=== PATIENT | female | born 1950 | race Caucasian/White ===

== ENCOUNTER 2017-06-20 12:00 | Outpatient (CLI) | payer MEDICARE, OTHER ==
--- NOTE | 2017-06-23 15:12 | Nuclear Medicine Report ---
EXAM: BONE SCAN EXAM DATE: 06/20/2017 03:27 PM. CLINICAL HISTORY: History of breast carcinoma. Left hip pain. COMPARISON: No comparison images available. Providers office contacted at the time of reporting. TECHNIQUE: Following the intravenous administration of 32 mCi of technetium 99m MDP and an appropriat e delay, a whole-body scan was performed in anterior and posterior projections. Site-specific spot vi ews of the region of interest were obtained in various projections. FINDINGS: Exam Quality: Normal overall osseous radiotracer uptake. Physiological tracer uptake in bilateral col lecting systems. Skull: No focal uptake. Thorax: No focal lesions in ribs or sternum. Pelvis: There is markedly increased tracer uptake in the region of the weightbearing surface of the l eft acetabulum and femoral hip. There is moderately increased tracer uptake in the remainder of the l eft femoral head. The findings carry a differential diagnosis including metastatic disease, fracture, avascular necrosis with subchondral collapse and severe degenerative change. Correlation with x-ray is recommended. No other foci of abnormal tracer uptake in the bony pelvis. Spine: There is moderately increased tracer uptake in the left C3-C4 and C4-C5 and right C5-C6 and C6 -C7 facet joints. Tracer uptake in the remainder of the spine appears normal. IMPRESSION: 1. Markedly increased tracer uptake in the weightbearing surfaces of the left hip, which may indicate metastasis, fracture, avascular necrosis with subchondral collapse or severe arthritis. Correlation with x-rays recommended. 2. Findings consistent with degenerative change of the cervical spine. [facility] Referring Provider Line: [phone] SITE ID: [id number]
== END 2017-06-20 12:01 | disposition home or self-care (01) ==
LOC: DI 12:00
PROVIDERS: ATTEND Internal Medicine Hematology & Oncology
DX: M25.552 Pain in left hip (principal); Z85.3 Personal history of malignant neoplasm of breast
CPT/HCPCS: 78306; A9503

== ENCOUNTER 2017-11-23 10:40 | Outpatient (CLI) | payer MEDICARE, OTHER ==
--- NOTE | 2017-11-24 12:29 | DEXA Report ---
DEXA: 11/23/2017 CLINICAL INDICATION: Postmenopausal. TECHNIQUE: Dual energy x-ray absorptiometry (DXA) was performed on a [employer] system. Regions measured are the AP spine, femoral neck, and, if needed, forearm. COMPARISON: 09/15/2016. In accordance with the International Society for Clinical Densitometry (ISCD) guidelines, data from previous exams may be reanalyzed using current recommendations and techniques. This is done to allow a more accurate basis for comparison with the current study. FINDINGS The data for the lumbar spine is as follows: REGION BMD (g/cm/cm) T-SCORE Z-SCORE L1 0.975 -1.3 0.5 L2 1.050 -1.3 0.5 L3 1.175 -0.2 1.6 L4 1.246 0.4 2.2 TOTAL 1.125 -0.5 1.3 NOTE: All evaluable vertebrae are used for classification. The data for the hip is as follows: REGION BMD (g/cm/cm) T-SCORE Z-SCORE Neck 0.997 -0.3 1.4 TOTAL 0.902 -0.8 0.6 NOTE: The femoral neck or total proximal femur, whichever is lowest, is used for classification. DEXA RESULTS SUMMARY: Spine SCAN DATE AGE BMD T-SCORE BMD CHANGE VS BASELINE BMD CHANGE VS PREVIOUS 11[age]23/2017 [age] 1.125 -- 0.008 0.7 09/15/2016 66.6 1[age]117 -- -- -- * Denotes significant change at the 95% confidence level. Denotes dissimilar scan types or analysis methods. DEXA RESULTS SUMMARY: Total hip SCAN DATE AGE BMD T-SCORE BMD CHANGE VS BASELINE BMD CHANGE VS PREVIOUS 11[age]23/2017 67.7 0.902 -- -0.005 -0.6 09[age]15/2016 66.6 0[age]907 -- -- -- * Denotes significant change at the 95% confidence level. Denotes dissimilar scan types or analysis methods. IMPRESSION 1. THE WHO CLASSIFICATION BASED ON THE INTERNATIONAL REFERENCE STANDARD IS NORMAL. THE FRACTURE RISK IS NOT INCREASED. 2. THERE HAS BEEN NO STATISTICALLY SIGNIFICANT INTERVAL CHANGE FROM 09/15/2016. RECOMMENDATION: Patients with diagnosis of osteoporosis or osteopenia should have regular bone mineral density assessment. For those eligible for Medicare, routine testing is allowed once every 2 years. Testing frequency can be increased for patients who have rapidly progressing disease or for those who are receiving medical therapy to restore bone mass. COMMENT: World Health Organization (WHO) definitions for osteoporosis and osteopenia: NORMAL BMD: T-score at 1.0 or higher, fracture risk is low. OSTEOPENIA BMD: T-score between 1.0 and -2.5, fracture risk is increased. OSTEOPOROSIS BMD: T-score at 2.5 or lower, fracture risk high. National Osteoporosis Foundation recommends: 1. Obtain adequate dietary calcium (at least 1200 mg per day) and vitamin D (400 -800 international units per day). 2. Participate, as appropriate, in regular weightbearing and muscle- strengthening exercise. 3. Avoid tobacco use and reduce alcohol and caffeine intake. 4. For more detailed information see the website at www.NOF.org. TD: 11/23/2017 18:13 TIRSO
== END 2017-11-23 10:41 | disposition home or self-care (01) ==
LOC: DI 10:40
DX: M81.0 Age-related osteoporosis without current pathological fracture (principal); Z78.0 Asymptomatic menopausal state
CPT/HCPCS: 77080

== ENCOUNTER 2018-12-10 10:39 | Outpatient (CLI) | payer MEDICARE, OTHER ==
--- NOTE | 2018-12-10 16:41 | Mammography Report ---
Reason: BREAST CANCER Procedure Date: 12/10/2018 Accession Number: [id number] / [id number] Procedure: [facility] - Diagnostic Dig Bilat CPT Code: FULL RESULT: EXAM: Diagnostic Dig Bilat DATE: 12/10/2018 11:34 AM CLINICAL HISTORY: Personal history of right breast cancer status post lumpectomy and chemoradiation infiltrate 2016. Diagnostic mammogram. TECHNIQUE: Bilateral CC and MLO views were obtained. Right ML and spot magnified right ML and CC views were obtained. COMPARISON: 09/22/2017 through 08/26/2015. FINDINGS: The breasts demonstrate extremely dense parenchyma bilaterally, limiting the sensitivity of mammography. Expected interval evolution of postsurgical and posttreatment changes in the right breast is observed. No suspicious masses, architectural distortion or calcifications are seen in either breast. IMPRESSION: Probable benign findings RECOMMENDATION: Recommend routine annual diagnostic mammography unless otherwise clinically indicated. BIRADS CATEGORY 3 STANDARD QUALIFYING STATEMENTS: 1. This examination was not reviewed with the aid of Computer-Aided Detection (CAD). 2. A negative or benign imaging report should not delay biopsy if clinically suspicious findings are present. Consider surgical consultation if warrented. More than 5% of cancers are not identified by imaging. 3. Dense breasts may obscure an underlying neoplasm. 4. This examination was reviewed with the aid of 3D imaging (tomography).
== END 2018-12-10 10:40 | disposition home or self-care (01) ==
LOC: DI 10:39
PROVIDERS: ATTEND Internal Medicine Hematology & Oncology
DX: C50.411 Malignant neoplasm of upper-outer quadrant of right female breast (principal)
CPT/HCPCS: 77062; 77066

== ENCOUNTER 2020-11-26 14:10 | Outpatient (CLI) | payer MEDICARE, OTHER ==
--- NOTE | 2020-11-26 16:07 | XRAY Report ---
PROCEDURE: Wrist 3 View RT INDICATIONS: R WRIST JOINT PX TECHNIQUE: 3 views of the wrist were acquired. COMPARISON: None. FINDINGS: Bones: No definite fractures or dislocations but please refer to the comments in the scaphoid view s ection below.. No suspicious bony lesions. Mild arthritic change but no definite trauma found. Scaphoid view: A dedicated scaphoid view was not obtained, and the scaphoid is relatively poorly vis ualized on 2 of the current 3 views. This is due to normal superimposition of multiple osseous margin s. The third view, mildly oblique, shows what may be offset of cortical margins by a slight degree at the mid body level of the scaphoid. Soft tissues: No suspicious soft tissue calcifications. IMPRESSION: The 3 views do not include a dedicated optimized scaphoid view, and one of the 3 views currently obta ined raises concern for presence of a minimally displaced mid body scaphoid fracture. Follow-up by ob taining a dedicated scaphoid view may be warranted, depending on the clinical status. Reviewed by: Marc Santiago MD on 11/26/2020 4:06 PM PST Approved by: Marc Santiago MD on 11/26/2020 4:06 PM PST Station ID: [id number]
== END 2020-11-26 23:59 | disposition home or self-care (01) ==
LOC: DI.N 14:10
PROVIDERS: ATTEND Physician Assistant
DX: M25.531 Pain in right wrist (principal)

== ENCOUNTER 2020-11-27 14:30 | Outpatient (CLI) | payer MEDICARE, OTHER ==
--- NOTE | 2020-11-30 16:32 | XRAY Report ---
PROCEDURE: Wrist 4 View RT INDICATIONS: RIGHT WRIST PAIN TECHNIQUE: 4 views of the wrist were acquired. COMPARISON: X-ray wrist 11/26/2020 FINDINGS: Bones: No suspicious bony lesions. There is a mildly displaced fracture through the mid pole of th e scaphoid bone. Soft tissues: No suspicious soft tissue calcifications. IMPRESSION: Mildly displaced mid scaphoid fracture. Reviewed by: Etta Duff MD on 11/30/2020 4:31 PM PST Approved by: Etta Duff MD on 11/30/2020 4:31 PM [facility] Station ID: [id number]
== END 2020-11-27 23:59 | disposition home or self-care (01) ==
LOC: DI.N 14:30
PROVIDERS: ATTEND Physician Assistant
DX: M25.531 Pain in right wrist (principal); S62.001A Unspecified fracture of navicular [scaphoid] bone of right wrist, initial encounter for closed fracture

== ENCOUNTER 2020-12-18 13:47 | Outpatient (CLI) | payer MEDICARE, OTHER ==
--- NOTE | 2020-12-18 11:06 | XRAY Report ---
PROCEDURE: Wrist 4 View RT INDICATIONS: RIGHT WRIST FRACTURE TECHNIQUE: 4 views of the wrist were acquired. COMPARISON: 11/27/2020 FINDINGS: Unchanged alignment of scaphoid fracture. There is increasing fracture lucency which is probably phys iologic resorption since 11/27/2020 scattered subchondral sclerosis and spurring. First CMC and trisc aphe joint degeneration. Soft tissues: No suspicious soft tissue calcifications. IMPRESSION: Grossly unchanged alignment of scaphoid fracture as above Reviewed by: Jorge Restrepo MD on 12/18/2020 11:04 AM PST Approved by: Jorge Restrepo MD on 12/18/2020 11:04 AM PST Station ID: [id number]
== END 2020-12-18 23:59 | disposition home or self-care (01) ==
LOC: DI.N 13:47
PROVIDERS: ATTEND Physician Assistant
DX: S62.001D Unspecified fracture of navicular [scaphoid] bone of right wrist, subsequent encounter for fracture with routine healing (principal)

== ENCOUNTER 2021-01-08 09:27 | Outpatient (CLI) | payer MEDICARE, OTHER ==
--- NOTE | 2021-01-08 11:27 | CT Report ---
PROCEDURE: UPPER EXTREMITY WO - RT INDICATIONS: DISPLACED FRACTURE OF MIDDLE OF NIVICULAR BONE RT TECHNIQUE: Noncontrast 3 mm axial sections acquired of the right wrist, with coronal and sagittal reformats. COMPARISON: Wrist radiograph dated 12/18/2020, 11/27/2020, 11/26/2020. FINDINGS: Image quality: Excellent. Bones: There is a slightly comminuted and minimally displaced fracture involving waist of scaphoid w ith up to 1.1 mm diastases at fracture site. There is slight impaction at scaphoid waist fracture sit e with up to 0.8 mm overlapping. Minimal medial and dorsal displacement of distal portion of scaphoid is seen measures up to 1.2 mm in distance. There is no bony union seen at this time. No new fracture or dislocation. No evidence of avascular necrosis. Osteoarthritic changes are noted throughout wrist joints more prominent along radial aspect of right wrist. There is widening of scapholunate interval . Old fracture involving tip of ulnar styloid is also noted with well corticated fragments. Soft tissues: There is soft tissue swelling over dorsum of carpal bones. Small radiocarpal joint eff usion is seen. No gross full-thickness wrist tendon rupture. No abnormal soft tissue calcifications. IMPRESSION: 1. Slightly comminuted, and minimally displaced scaphoid waist fracture as described in detail above. No evidence of avascular necrosis is seen. 2. Osteoarthritic changes throughout wrist joints more prominent along radial aspect of right wrist. 3. Widening of scapholunate interval suggestive of scapholunate ligament rupture. 4. Soft tissue swelling over dorsum of carpal bones. Small radial carpal joint effusion. No abnormal soft tissue calcifications. Reviewed by: Ed Davis MD on 01/08/2021 11:26 AM PDT Approved by: Ed Davis MD on 01/08/2021 11:26 AM PDT Station ID: [id number]
== END 2021-01-08 09:28 | disposition home or self-care (01) ==
LOC: DI 09:27
PROVIDERS: ATTEND Physician Assistant
DX: S62.021A Displaced fracture of middle third of navicular [scaphoid] bone of right wrist, initial encounter for closed fracture (principal); M19.031 Primary osteoarthritis, right wrist; M25.431 Effusion, right wrist; R93.6 Abnormal findings on diagnostic imaging of limbs

== ENCOUNTER 2021-06-29 08:34 | Outpatient (CLI) | payer MEDICARE, OTHER ==
--- NOTE | 2021-06-29 11:58 | DEXA Report ---
PROCEDURE: Dexa Spine and/or Hip INDICATIONS: POSTMENOPAUSAL TECHNIQUE: Dual energy x-ray absorptiometry (DXA) was performed on a [employer] System. Regions measur ed are the AP Spine, femoral neck, and if needed forearm. COMPARISON: DEXA to 818 FINDINGS: Lumbar Spine: Bone Mineral Density 1.16 g/cm/cm,T score -0.2, compared to -0.5 Left Hip: Bone Mineral Density 0.864 g/cm/cm,T score -1.1, compared to -0.8 Left Femoral Neck: Bone Mineral Density 0.828 g/cm/cm, T score -1.5, compared to -0.3 (T score greater or equal to -1.0: NORMAL) (T score from -1.1 to -2.4: OSTEOPENIA) (T score less than or equal to -2.5 to: OSTEOPOROSIS) Impression: 1. Minimal to mild osteopenia within the left hip and femoral neck, progressive compared to prior exa m. Minimal appearance of increased bone density within the lumbar spine. Patients with diagnosis of osteoporosis or osteopenia should have regular bone mineral density assess ment. For those eligible for Medicare, routine testing is allowed once every 2 years. Testing frequ ency can be increased for patients who have rapidly progressing disease or for those who are receivin g medical therapy to restore bone mass. Reviewed by: Etta Duff MD on 06/29/2021 11:57 AM PDT Approved by: Etta Duff MD on 06/29/2021 11:57 AM PDT Station ID: [id number]
== END 2021-06-29 08:35 | disposition home or self-care (01) ==
LOC: DI 08:34
PROVIDERS: ATTEND Family Medicine
DX: Z78.0 Asymptomatic menopausal state (principal); S62.109A Fracture of unspecified carpal bone, unspecified wrist, initial encounter for closed fracture; W18.30XA Fall on same level, unspecified, initial encounter; Z92.21 Personal history of antineoplastic chemotherapy; M85.89 Other specified disorders of bone density and structure, multiple sites; Z85.3 Personal history of malignant neoplasm of breast

== ENCOUNTER 2021-06-29 08:36 | Outpatient (CLI) | payer MEDICARE, OTHER ==
--- NOTE | 2021-06-30 12:00 | Mammography Report ---
BILATERAL DIGITAL DIAGNOSTIC MAMMOGRAM 3D/2D: 06/29/2021 CLINICAL: Routine screening. Personal history of right breast cancer. Comparison is made to exams dated: 12/10/2018 mammogram - [facility], 09/22/2017 [facility] mogram [facility], 10/21/2015 specimen, 10/21/2015 localization, 10/21/2015 mammogram, and 09/17/20 15 breast formerly [facility]. The tissue of both breasts is extremely dense, which lowers the sen sitivity of mammography. The right breast has stable post-operative/treatment findings. Stable subtle architectural distortio n of the left breast consistent with reported history of remote excisional biopsy. No significant masses, calcifications, or other findings are seen in either breast. IMPRESSION: NEGATIVE There is no mammographic evidence of malignancy. A 1 year screening mammogram is recommended. Findings and recommendations were conveyed to the patient during today's evaluation. This exam was interpreted at Station ID: [id number]. NOTE: For mammograms, a report in lay terms will be sent to the patient. Approximately 15% of breast malignancies will not be visualized mammographically. In the management of a palpable breast mass, a negative mammogram must not discourage biopsy of a clinically suspicious lesion. Electronically Signed By: Drew Dunham M.D. aty/:06/29/2021 09:34:03 ACR BI-RADS Category 1: Negative 3341F PARENCHYMAL PATTERN: (VD) - The breast(s) demonstrate(s) extremely dense parenchyma, limiting the sen sitivity of mammography. BI-RADS CATEGORY: (1) - 1 RECOMMENDATION: (ANNUAL) - Recommend routine annual screening mammography. [id number] 1 year screening LATERALITY: (B)
== END 2021-06-29 08:37 | disposition home or self-care (01) ==
LOC: DI 08:36
PROVIDERS: ATTEND Family Medicine
DX: Z85.3 Personal history of malignant neoplasm of breast (principal)

== ENCOUNTER 2023-02-16 13:25 | Outpatient (CLI) | payer MEDICARE, OTHER ==
--- NOTE | 2023-02-16 15:31 | MRI Report ---
PROCEDURE: LUMBAR SPINE WO INDICATIONS: LUMBAR SPONDYLOSIS TECHNIQUE: Noncontrast sagittal T1 spin echo and T2 fast echo, coronal T2, sagittal STIR, axial T1 and T2 fast s pin echo through the lumbar spine. COMPARISON: None. FINDINGS: Image quality: Excellent. Alignment and Curvature: No plain films are available for comparison. Thus, for numbering purposes, 5 lumbar type vertebral bodies will be presumed for the current report. This should be confirmed with plain film correlation prior to any lumbar spinal intervention. 3 mm of retrolisthesis of L1 on L2. 2 mm of retrolisthesis of L2 on L3. 3 mm of retrolisthesis of L4 on L5 and L5 on S1. Bone Marrow: Marrow is of normal overall signal. No acute vertebral body compression fractures. Mo derate reactive signal within the end plates adjacent to the L4-L5 and L5-S1 intervertebral discs. Mi ld reactive signal adjacent to the remaining lumbar and lower thoracic intervertebral discs. Spinal Cord: Conus medullaris terminates at the upper L1 level. Visualized cord demonstrates normal signal and size. Paraspinous Soft Tissues: No paravertebral masses. T12-L1: Normal in appearance. L1-L2: Moderate disc height loss and desiccation. Mild diffuse disc bulge. Mild facet and ligament flavum hypertrophy. Mild canal stenosis. Mild bilateral foraminal stenosis. L2-L3: Mild disc height loss and desiccation. Mild diffuse disc bulge. Mild facet and ligament fla vum hypertrophy. Mild epidural lipomatosis. Mild canal stenosis. Mild bilateral foraminal stenosis. L3-L4: Mild disc height loss and desiccation. Mild diffuse disc bulge. Moderate facet and ligament flavum hypertrophy. Mild epidural lipomatosis. Severe canal stenosis. Mild bilateral foraminal stenos is. L4-L5: Moderate disc height loss and desiccation. Mild diffuse disc bulge. Mild facet and ligament flavum hypertrophy. Mild canal stenosis. Mild left and moderate right foraminal stenosis. L5-S1: Moderate disc height loss and desiccation. Mild diffuse disc bulge. Mild facet and ligament flavum hypertrophy. Mild canal stenosis. Moderate bilateral foraminal stenosis. IMPRESSION: 1. Multilevel degenerative disc and facet disease, in addition to epidural lipomatosis and ligamentum flavum hypertrophy. 2. Multilevel canal stenoses, worst at L3-L4 where there is severe canal stenosis. 3. Multilevel foraminal stenoses, worst at L4-L5 and L5-S1 where there are moderate foraminal stenose s. Reviewed by: Aron Plunkett MD on 02/16/2023 3:30 PM PDT Approved by: Aron Plunkett MD on 02/16/2023 3:30 PM PDT Station ID: [id number]
== END 2023-02-16 13:26 | disposition home or self-care (01) ==
LOC: DI 13:25
PROVIDERS: ATTEND Physical Medicine & Rehabilitation
DX: M47.816 Spondylosis without myelopathy or radiculopathy, lumbar region (principal); M51.36 Other intervertebral disc degeneration, lumbar region; M48.061 Spinal stenosis, lumbar region without neurogenic claudication; M47.817 Spondylosis without myelopathy or radiculopathy, lumbosacral region; M51.37 Other intervertebral disc degeneration, lumbosacral region; M48.07 Spinal stenosis, lumbosacral region

== ENCOUNTER 2023-12-22 10:53 | Outpatient (CLI) | payer MEDICARE, OTHER ==
[2023-12-22 11:13] LABS: BASOPHILS % (AUTO) 0.4 %; EOSINOPHILS # (AUTO) 0.2 10^3/uL (0.0-0.7); HCT - HEMATOCRIT 38.3 % (37.0-47.0); HGB - HEMOGLOBIN 12.7 g/dL (12.0-16.0); LYMPHOCYTES # (AUTO) 1.9 10^3/uL (1.5-3.5); LYMPHOCYTES % (AUTO) 26.6 %; MEAN CORPUSCULAR HEMOGLOBIN 31.6 pg (27.0-31.0); MEAN CORPUSCULAR HGB CONC 33.2 g/dL (32.0-36.0); MEAN CORPUSCULAR VOLUME 95.3 fL (81.0-99.0); MEAN PLATELET VOLUME 9.2 fL (7.9-10.8); MONOCYTES # (AUTO) 0.6 10^3/uL (0.0-1.0); MONOCYTES % (AUTO) 8.5 %; NEUTROPHILS # (AUTO) 4.3 10^3/uL (1.5-6.6); NEUTROPHILS % (AUTO) 61.4 %; PLT - PLATELET COUNT 301 10^3/uL (130-450); RED BLOOD COUNT 4.02 10^6/uL (4.20-5.40); RED CELL DISTRIBUTION WIDTH 14.2 % (12.0-15.0); WHITE BLOOD COUNT 7.1 x10^3/uL (4.8-10.8)
[2023-12-22 11:26] LABS: CALCIUM 9.9 mg/dL (8.5-10.3); CREATININE 0.9 mg/dL (0.6-1.3); POTASSIUM 4.7 mmol/L (3.5-4.5)
[2023-12-22 11:31] LABS: PT - PROTHROMBIN TIME 11.1 secs (9.9-12.6)
== END 2023-12-22 10:54 | disposition home or self-care (01) ==
LOC: LAB 10:53
PROVIDERS: ATTEND Physical Medicine & Rehabilitation
DX: Z01.818 Encounter for other preprocedural examination (principal); Z51.81 Encounter for therapeutic drug level monitoring
CPT/HCPCS: 36415; 80048; 85025; 85610; 85730; 93005